=== PATIENT | female | born 1980 | race Caucasian/White ===

== ENCOUNTER 2023-09-06 15:28 | Emergency (ER) | payer OTHER ==
[2023-09-06 15:32] VITALS: BP 120/81; PULSE 94; RESP 20; TEMP 97.8; BMI 27.4
== END 2023-09-06 17:25 | disposition home or self-care (01) ==
LOC: FER 15:28
DX: R05.9 Cough, unspecified (principal); J02.9 Acute pharyngitis, unspecified; R53.83 Other fatigue; R50.9 Fever, unspecified; J40 Bronchitis, not specified as acute or chronic
CPT/HCPCS: 71046-TC-FY; 99283-25